=== PATIENT | female | born 1985 | race Caucasian/White ===

== ENCOUNTER 2016-07-03 17:59 | Emergency (ER) | payer MEDICAID ==
[~2016-07-03] VITALS: Ht 157.5 cm; Wt 78.0 kg
[~2016-07-03 17:59] MED LIST: PREN1TAB49 PO
[2016-07-03 18:03] VITALS: Ht 157.5 cm; Wt 78.0 kg
--- NOTE | 2016-07-03 20:05 | ERD ---
ER Documentation Chief Complaint Date/Time DATE: 07/03/16 Chief Complaint , Vaginal bleeding HPI The patient is a 31-year-old female, A2, who presents the Emergency Department with complaint of vaginal spotting since this morning. The patient reports that her last menstrual period was 04/20/2016, and she believes that she is approximately 8 weeks . This morning after waking up she went to use the restroom and noted minimal pink-colored vaginal spotting on the tissue paper. She has continued to have vaginal spotting since, with no passage of clots or tissue. She called her SHOTBLAST OPERATOR, Dr. Gamino, regarding these symptoms, and was referred to the ED for ultrasound imaging, beta hCG testing and laboratory evaluation. The patient has not yet obtained an ultrasound during this . She denies any abdominal pain, nausea, vomiting or diarrhea. Denies any dysuria, hematuria, flank pain. Denies any fevers or chills. Denies any chest pain, palpitations, shortness of breath, cough. Denies lower extremity edema, calf swelling or calf tenderness. Denies any new vaginal discharge. ROS All systems reviewed and are negative except as per history of present illness. Medications Home Meds Active Scripts Cephalexin* (Keflex*) 500 Mg Capsule, 500 MG PO QID for 7 Days, CAP Prov:JERILYN QUINTERO PA-C 07/03/16 Reported Medications Vits W-Ca,Fe,Fa(<1MG) () 1 Tab Tablet, 1 TAB PO 11/08/11 [None] No Conflict Check 08/08/10 Allergies Allergies: Coded Allergies: Penicillins (Verified Allergy, 11/08/11) PMhx/Soc History of Surgery: No Anesthesia Reaction: No Hx Neurological Disorder: No Hx Respiratory Disorders: No Hx Cardiac Disorders: No Hx Psychiatric Problems: No Hx Miscellaneous Medical Probl: No (NO OTHER MEDICAL PROBLEMS) Hx Alcohol Use: No Hx Substance Use: No Hx Tobacco Use: No Physical Exam Vitals Vital Signs Date Time Temp Pulse Resp B/P Pulse Ox O2 Delivery O2 Flow Rate FiO2 07/03/16 22:58 98.3 75 18 121/82 100 Room Air 07/03/16 18:03 98.1 79 20 145/79 99 Physical Exam GENERAL: Well-developed, well-nourished, female, in no acute distress. Nontoxic. Well-appearing. HEENT: Head is normocephalic, atraumatic. No scleral pallor or icterus. Pupils equal, round and reactive to light. Conjunctiva pink. Moist mucous membranes. NECK: Supple. Full range of motion. RESPIRATORY: Lungs are clear to auscultation bilaterally. Equal breath sounds. Normal expiratory effort. CARDIOVASCULAR: Regular rate and rhythm. S1 and S2 normal. No murmurs, rubs, or gallops. Distal pulses are palpable, 2+ bilaterally. Capillary refill is less than 2 seconds. GASTROINTESTINAL: Abdomen is soft, non-tender, and non-distended. No guarding, no rebound tenderness. Normal bowel sounds. No gross peritonitis. FLANK: No CVA tenderness. EXTREMITIES: No clubbing, cyanosis, or edema. Normal skin perfusion. Moving all extremities. Muscle tone is normal. No focal swelling or erythema. NEUROLOGIC: The patient is alert, awake, and oriented x 3. No focal neurologic deficits. INTEGUMENT: Skin is intact. Warm and dry. No rashes, no petechiae present. Normal turgor. PSYCHIATRIC: Normal mood and mentation. Result Diagram: 07/03/162016 Results 24 hrs Laboratory Tests Test 07/03/16 20:00 07/03/16 20:17 Urine Bacteria MODERATE Urine Bilirubin NEGATIVE Urine Clarity SLIGHTLY CLOUDY Urine Color YELLOW Urine Epithelial Cells MODERATE Urine Glucose NEGATIVE% Urine Hemoglobin 3+ Urine Ketones NEGATIVE Urine Leukocyte Esterase 2+ Urine Microscopic RBC 5-10/HPF Urine Microscopic WBC 25-50/HPF Urine Mucus MODERATE Urine Nitrite NEGATIVE Urine Specific [place] 1.020 Urine Total Protein NEGATIVE Urine Urobilinogen 0.2 E.U./dL Urine pH 6.0 Basophils # 0.010^3/ul Basophils % 0.3% Beta HCG, Quantitative 47964.0mIU/ml Blood Morphology Comment Eosinophils # 0.210^3/ul Eosinophils % 1.5% Hematocrit 37.0% Hemoglobin 12.7g/dl Lymphocytes # 2.010^3/ul Lymphocytes % 18.0% Mean Corpuscular Hemoglobin 28.5pg Mean Corpuscular Hemoglobin Concent 34.3g/dl Mean Corpuscular Volume 83.2fl Mean Platelet Volume 7.1fl Monocytes # 0.410^3/ul Monocytes % 3.9% Neutrophils # 8.410^3/ul Neutrophils % 76.3% Nucleated Red Blood Cells # 0.010^3/ul Nucleated Red Blood Cells % 0.0/100WBC Platelet Count 11274^3/UL Red Blood Count 4.4510^6/ul Red Cell Distribution Width 13.7% White Blood Count 11.110^3/ul Procedures/MDM DIAGNOSTIC TESTS AND INTERPRETATION: PROCEDURE: US OB. CLINICAL INDICATION: Vaginal bleeding TECHNIQUE: Transabdominal and transvaginal views of the pelvis are available for review. COMPARISON: No prior studies are available for comparison. FINDINGS: Intrauterine gestational sac, yolk sac and pole of the following information: [place]-rump length: 0.54 cm heart rate: 109 bpm Gestational sac: 1.33 cm Ultrasound estimated gestational age: 6 weeks 1 day No subchorionic hemorrhage is demonstrated No ovarian or adnexal mass lesion is seen. There is no free fluid. IMPRESSION: 1. Single viable intrauterine with an estimated gestational age of 6 weeks 1 day, the estimated date of delivery 02/25/2017. 2. No evidence of subchorionic hemorrhage to help explain the provided history. Physician Mil Date Time Electronically viewed and signed by Physician Mil on 07/03/2016 21:30 The possibility of threatened vs. early vs. ectopic was discussed with the patient and she was told to follow up with her SHOTBLAST OPERATOR within 2-3 days for re-evaluation. The patient complies and agrees with plan. MEDICAL DECISION MAKING: This is a 31-year-old female presenting to the Emergency Department complaining of vaginal bleeding. She had no significant abnormalities noted on physical examination. Vital signs were normal. Differential diagnosis includes, but is not limited to, ectopic , cervicitis, fibroids, molar , implantation bleeding, heterotopic , septic , missed , incomplete , inevitable , threatened , complete , coagulopathy, fibroids, adenomyosis, endometriosis, neoplasia, vaginitis, PID, vaginal trauma , dysfunctional uterine bleeding. No significant abnormalities were noted on testing ordered. Urinalysis showed 2+ urine leukocyte esterase, 3+ urine hemoglobin and many WBCs, indicating likely urinary tract infection. Beta hCG 17 ,759. Rh (+), no indication for RhoGAM. Ultrasound performed revealed a single viable intrauterine with an estimated gestational age of 6 weeks 1 day , the estimated date of delivery 02/25/2017. After rest the patient reports no new complaints. Upon review and interpretation of the patient's presentation and overall ER course, I believe the patient's symptoms are most consistent with urinary tract infection and threatened . At this time the patient patient is in stable condition with stable vital signs and therefore can be discharged home with prescription for Keflex and given strict return precautions for signs of deteriorating or worsening condition. The patient is advised to follow up with her SHOTBLAST OPERATOR within 2-3 days for reevaluation and further management, or return to the ER sooner for any worsening symptoms. I shared all laboratory and diagnostic imaging studies with the patient at length and in great detail, and the patient verbally understands and agrees with the plan for further observation and care as an outpatient. At the time of discharge, all questions were answered. Departure Diagnosis: Primary Impression: Vaginal bleeding in patient at less than 20 weeks gestation Additional Impressions: Threatened Urinary tract infection Urinary tract infection type: acute cystitis Hematuria presence: with hematuria Qualified Code: N30.01 - Acute cystitis with hematuria Condition: Stable Patient Instructions: Bleeding During Early , Possible Miscarriage ( Threatened ), Understanding Urinary Tract Infections (UTIs) Additional Instructions: FOLLOW UP WITH DR. GAMINO IN 2-3 DAYS FOR REPEAT BETA HCG, REEVALUATION AND FURTHER MANAGEMENT. RETURN TO THE ED SOONER FOR ANY NEW OR WORSENING SYMPTOMS. JEIRLYN QUINTERO PA-C Jul 03, 2016 20:05
[2016-07-03 20:39] LABS: ADD UMIC YES; URINE BILIRUBIN (Dip) NEGATIVE (NEGATIVE); URINE BLOOD (Dip) 3+ (NEGATIVE); URINE COLOR YELLOW (YELLOW); URINE GLUCOSE (Dip) NEGATIVE (NEGATIVE); URINE KETONES (Dip) NEGATIVE (NEGATIVE); URINE LEUKOCYTE ESTERASE (Dip) 2+ (NEGATIVE); URINE NITRITE (Dip) NEGATIVE (NEGATIVE); URINE TOTAL PROTEIN (Dip) NEGATIVE (NEGATIVE); URINE UROBILINOGEN (Dip) 0.2 E.U./dL (0.1-1.0)
[2016-07-03 20:42] LABS: BASOPHILS % 0.3 % (0.0-2.0); EOSINOPHILS # 0.2 10^3/ul (0.0-0.5); EOSINOPHILS % 1.5 % (0.0-7.0); HEMOGLOBIN 12.7 g/dl (12.0-16.0); MEAN CORPUSCULAR HEMOGLOBIN 28.5 pg (29.0-33.0); MEAN CORPUSCULAR HGB CONC 34.3 g/dl (32.0-37.0); MEAN CORPUSCULAR VOLUME 83.2 fl (82.0-101.0); MEAN PLATELET VOLUME 7.1 fl (7.4-10.4); MONOCYTE # 0.4 10^3/ul (0.3-0.9); MONOCYTES % 3.9 % (0.0-11.0); NEUTROPHIL # 8.4 10^3/ul (1.6-7.5); NEUTROPHILS % 76.3 % (39.0-77.0); PLATELET COUNT 341 10^3/UL (140-440); RED BLOOD COUNT 4.45 10^6/ul (4.20-5.40); RED CELL DISTRIBUTION WIDTH 13.7 % (11.5-14.5); UNCORRECTED WBC 11.1 10^3/ul (4.8-10.8); WHITE BLOOD COUNT 11.1 10^3/ul (4.8-10.8)
[2016-07-03 20:47] LABS: CONDITION 1
[2016-07-03 20:59] LABS: BACTERIA,URINE MODERATE; MUCUS,URINE MODERATE
--- NOTE | 2016-07-03 21:30 | RADRPT ---
PROCEDURE: US OB. CLINICAL INDICATION: Vaginal bleeding TECHNIQUE: Transabdominal and transvaginal views of the pelvis are available for review. COMPARISON: No prior studies are available for comparison. FINDINGS: Intrauterine gestational sac, yolk sac and pole of the following information: [place]-rump length:0.54 cm heart rate:109 bpm Gestational sac:1.33 cm Ultrasound estimated gestational age:6 weeks 1 day No subchorionic hemorrhage is demonstrated No ovarian or adnexal mass lesion is seen. There is no free fluid. RPTAT:HJJR IMPRESSION: 1. Single viable intrauterine with an estimated gestational age of 6 weeks 1 day, the est imated date of delivery 02/25/2017. 2. No evidence of subchorionic hemorrhage to help explain the provided history. Physician Mil Date Time Electronically viewed and signed by Physician Mil on 07/03/2016 21:30 /
[2016-07-03] MEDS ORDERED: CEPH-443 PO (21:40)
[2016-07-03 22:58] VITALS: BP 121/82; PULSE 75; RESP 18; TEMP 98.3
== END 2016-07-03 22:58 | disposition home or self-care (01) ==
LOC: FTE 17:59
DX: O20.9 Hemorrhage in early pregnancy, unspecified (principal); O20.0 Threatened abortion; O23.11 Infections of bladder in pregnancy, first trimester
CPT/HCPCS: 36415; 76801; 76817; 81001; 84702; 85025; 86900; 86901; 87086; Z7502; 81003

== ENCOUNTER 2016-10-13 18:39 | Outpatient (CLI) | payer MEDICAID ==
[~2016-10-13] VITALS: Ht 160 cm; Wt 98.5 kg
[~2016-10-13 18:39] MED LIST changes: +CEPH-443 PO
[2016-10-13 18:59] VITALS: BP 139/76; PULSE 116; RESP 20; Ht 160 cm; Wt 98.5 kg
[2016-10-13 19:45] LABS: ADD SCAN DIFF NO
[2016-10-13 19:49] LABS: BASOPHILS % 0.1 % (0.0-2.0); EOSINOPHILS # 0.1 10^3/ul (0.0-0.5); EOSINOPHILS % 0.5 % (0.0-7.0); HEMATOCRIT 34.9 % (37.0-47.0); HEMOGLOBIN 11.7 g/dl (12.0-16.0); LYMPHOCYTES # 0.8 10^3/ul (0.8-2.9); LYMPHOCYTES % 8.4 % (15.0-51.0); MEAN CORPUSCULAR HEMOGLOBIN 28.5 pg (29.0-33.0); MEAN CORPUSCULAR HGB CONC 33.5 g/dl (32.0-37.0); MEAN CORPUSCULAR VOLUME 85.1 fl (82.0-101.0); MEAN PLATELET VOLUME 8.6 fl (7.4-10.4); MONOCYTE # 0.4 10^3/ul (0.3-0.9); MONOCYTES % 3.9 % (0.0-11.0); PLATELET COUNT 221 10^3/UL (140-415); RED CELL DISTRIBUTION WIDTH 13.8 % (11.5-14.5); WHITE BLOOD COUNT 9.3 10^3/ul (4.8-10.8)
[2016-10-13 19:57] LABS: ADD UMIC YES; URINE BILIRUBIN (Dip) NEGATIVE (NEGATIVE); URINE BLOOD (Dip) 1+ (NEGATIVE); URINE COLOR YELLOW (YELLOW); URINE GLUCOSE (Dip) NEGATIVE (NEGATIVE); URINE KETONES (Dip) 3+ (NEGATIVE); URINE LEUKOCYTE ESTERASE (Dip) NEGATIVE (NEGATIVE); URINE NITRITE (Dip) NEGATIVE (NEGATIVE); URINE TOTAL PROTEIN (Dip) TRACE (NEGATIVE); URINE UROBILINOGEN (Dip) 0.2 E.U./dL (0.1-1.0)
[2016-10-13 20:05] LABS: ALBUMIN 3.5 g/dl (3.3-4.9); POTASSIUM 3.5 mmol/L (3.5-5.1)
[2016-10-13 20:06] LABS: INR 0.97; PROTIME 12.9 Sec (12.2-14.2)
[2016-10-13 20:07] LABS: PARTIAL THROMBOPLASTIN TIME 26.5 Sec (25.0-35.0)
[2016-10-13 20:08] LABS: ALBUMIN/GLOBULIN RATIO 0.92; BILIRUBIN,INDIRECT 0.4 mg/dl (0-1.1); BILIRUBIN,TOTAL 0.4 mg/dl (0.2-1.3); CALCIUM 8.7 mg/dl (8.4-10.2); CREATININE 0.44 mg/dl (0.44-1.00); TOTAL PROTEIN 7.3 g/dl (6.1-8.1); URIC ACID 4.3 mg/dl (3.1-7.9)
[2016-10-13 20:33] LABS: FIBRIN SPLIT PRODUCT <10 ug/ml (<10)
--- NOTE | 2016-10-13 21:35 | QN ---
Documentation Comment OB Triage- Laborist Pt is a 31yo at 20+5 presenting with intermittent epigastric pain since 0100. Pt states pain comes about every 5 minutes and is 6/10, non-radiating, non -migrating. Started after eating meatballs with rice and macaroni salad for dinner last night. Had episode of N/V after breakfast this morning (toast with cream cheese and coffee) and again after eating a banana and drinking water. Denies nausea now. Drinking water in triage without problems. Feels pain is moving downwards from epigastric region to umbilicus. Takes Tums at home for reflux although doesn't feel like reflux today. Reports mild SALAZAR, denies visual changes or RUQ pain. Reports good FM, denies contractions, LOF or VB. Of note, pt says at her last clinic appt for U/S, she was told she had mildly elevated BP. Otherwise, pt denies hx of HTN. Per Dr. Edwards, RUQ U/S, CL, CBC, CMP, amylase, lipase and uric acid ordered. O: VS T 98.0 BP 139/76 T 116 R 20, Repeat BP 130/83 P 103 FHT: [place]: acontractile Gen: well appearing, NAD Abd: soft, min reproducible TTP at epigastric region PROCEDURE: Limited OB ultrasound CLINICAL INDICATION: Abdominal pain. TECHNIQUE: Sonographic evaluation to assess the cervical length was performed. Transabdominal and transvaginal imaging of the uterus was performed. COMPARISON: None. FINDINGS: A single live intrauterine in variable presentation is identified. The heart rate measures 157 bpm. The cervix is closed, measuring 3.1 cm in length. There is a posterior placenta, grade 0. IMPRESSION: 1. Closed cervix measuring 3.1 cm. PROCEDURE: Right upper quadrant ultrasound. CLINICAL INDICATION: Right upper quadrant pain. TECHNIQUE: Multiple real-time longitudinal and transverse images of the right upper quadrant of the abdomen were acquired utilizing a curved array transducer. Images were reviewed on a high-resolution PACS workstation. COMPARISON: None. FINDINGS: The pancreas head is unremarkable. The pancreas body and tail are not well seen. The liver is echogenic. The liver measures 18.7 cm in length. No hepatic lesion or intrahepatic biliary ductal dilatation is seen. The portal vein is patent with hepatopetal flow. No gallstones or sludge are seen within the gallbladder lumen. The gallbladder wall is not thickened. There is no pericholecystic fluid. The common bile duct measures 3 mm in diameter, not dilated. The right kidney measures 10.8 cm in length. Renal echogenicity is normal. There is no hydronephrosis, urinary calculus, or renal mass. The visualized portions of the aorta and IVC are unremarkable. IMPRESSION: 1. Normal appearance of the gallbladder and bile ducts. 2. Hepatomegaly and fatty infiltration of the liver. Assessment: Epigastric pain, N/V possibly 2/2 gastroenteritis vs gas High normal BP with mild SALAZAR, normal PreE labs Reassuring FWB Maternal tachycardia, improved with hydration Plan: 1)GI upset: Biliary labs and RUQ U/S unremarkable. Able to tolerate POs. Recommended BRAT diet at home for now. N/V precautions reviewed. 2)High normal BP x1: Repeat BP wnl. PreE labs wnl. Tylenol for SALAZAR 3)Tachycardia: Ketones on UA. Likely 2/2 dehydration in the setting of N/V. HR improved with IV hydration. Encourage PO hydration. Pain, PTL and ROM precautions discussed with the patient. Pt stable for discharge home. Encourage f/up as scheduled in clinic. Questions answered to patient's satisfaction. SONY HUBER MD October 13, 2016 21:35
[2016-10-13 21:42] LABS: BACTERIA,URINE FEW; MUCUS,URINE FEW; SQUAMOUS EPITHELIAL CELL,UR FEW; URINE RBCS 0-2 /HPF (0)
--- NOTE | 2016-10-13 21:50 | RADRPT ---
PROCEDURE: Right upper quadrant ultrasound. CLINICAL INDICATION: Right upper quadrant pain. TECHNIQUE: Multiple real-time longitudinal and transverse images of the right upper quadrant of th e abdomen were acquired utilizing a curved array transducer. Images were reviewed on a high-resoluti on PACS workstation. COMPARISON: None. FINDINGS: The pancreas head is unremarkable. The pancreas body and tail are not well seen. The liver is echogenic. The liver measures 18.7 cm in length. No hepatic lesion or intrahepatic bi liary ductal dilatation is seen. The portal vein is patent with hepatopetal flow. No gallstones or sludge are seen within the gallbladder lumen. The gallbladder wall is not thickene d. There is no pericholecystic fluid. The common bile duct measures 3 mm in diameter, not dilated. The right kidney measures 10.8 cm in length. Renal echogenicity is normal. There is no hydronephro sis, urinary calculus, or renal mass. The visualized portions of the aorta and IVC are unremarkable. IMPRESSION: 1. Normal appearance of the gallbladder and bile ducts. 2. Hepatomegaly and fatty infiltration of the liver. RPTAT: HTAR .Geremias Diego MD, MD Date Time Electronically viewed and signed by .Geremias iDego MD, on 10/13/2016 21:50 .R/
--- NOTE | 2016-10-13 21:51 | RADRPT ---
PROCEDURE: Limited OB ultrasound CLINICAL INDICATION: Abdominal pain. TECHNIQUE: Sonographic evaluation to assess the cervical length was performed. Transabdominal and transvaginal imaging of the uterus was performed. COMPARISON: None. FINDINGS: A single live intrauterine in variable presentation is identified. The heart rate me asures 157 bpm. The cervix is closed, measuring 3.1 cm in length. There is a posterior placenta, gra de 0. IMPRESSION: 1. Closed cervix measuring 3.1 cm. RPTAT: HTAR .Geremias Diego MD, Date Time Electronically viewed and signed by .Geremias Diego MD, on 10/13/2016 21:51 .R/
[2016-10-13] MEDS ORDERED: LACTATED RINGER'S 1,000 ML IV SCH (22:06)
[2016-10-13] MEDS ORDERED: ACETAMINOPHEN 500 MG TAB PO STA (22:27)
--- NOTE | 2016-10-13 23:51 | TRIAGE ---
OB Triage Datetime Report Generated by CPN: 10/13/2016 23:51 Datetime: 10/13/2016 22:41 Labor Evaluation Frequency: 0 Monitor Mode: External Datetime: 10/13/2016 22:21 Stage of : OB Triage Datetime: 10/13/2016 22:00 Labor Evaluation Frequency: 0 Monitor Mode: External Datetime: 10/13/2016 21:00 Labor Evaluation Frequency: 1/HR Monitor Mode: External Duration (sec)2399: 30 Datetime: 10/13/2016 20:00 Labor Evaluation Frequency: 1/HR Monitor Mode: External Duration (sec)2399: 60 Quality: Mild Pattern: Normal: <= 5 Contractions in 10 Minutes Resting Tone [place]: Relaxed Datetime: 10/13/2016 19:30 Labor Evaluation Frequency: 0 Monitor Mode: External Datetime: 10/13/2016 19:22 Assessment Type: Triage Maternal Assessment Level of Consciousness: Fully Conscious DTR's/Clonus: DTRs 2+; No Clonus Headache: Denies Blurred Vision: No Respiratory Effort: Unlabored; Regular Rhythm; Equal Expansion Breath Sounds, Left: Clear and Equal Breath Sounds, Right: Clear and Equal Nausea/Vomiting: Denies RUQ Epigastric Pain: Denies Facial Edema: None Fall Risk Assessment History of Falling: (0) No Secondary Diagnosis: (0) No Ambulatory Aid: (0) Bedrest/Nurse Assist IV Therapy: (0) No Gait: (0) Normal/Bedrest/Immobile Mental Status: (0) Oriented to Own Ability Fall Score: 0 Fall Risk Score Definition: No Risk: No action required Datetime: 10/13/2016 19:10 Heart Rate FHR Baseline Rate: 168 Monitor Mode: Doppler Datetime: 10/13/2016 18:53 Assessment Type: Triage Maternal Assessment Level of Consciousness: Fully Conscious DTR's/Clonus: DTRs 2+; No Clonus Headache: Denies Blurred Vision: No Respiratory Effort: Unlabored; Regular Rhythm; Equal Expansion Breath Sounds, Left: Clear and Equal Breath Sounds, Right: Clear and Equal Nausea/Vomiting: Denies RUQ Epigastric Pain: Denies Facial Edema: None Fall Risk Assessment History of Falling: (0) No Secondary Diagnosis: (0) No Ambulatory Aid: (0) Bedrest/Nurse Assist IV Therapy: (0) No Gait: (0) Normal/Bedrest/Immobile Mental Status: (0) Oriented to Own Ability Fall Score: 0 Fall Risk Score Definition: No Risk: No action required Datetime: 10/13/2016 18:52 Stage of : OB Triage Maternal Assessment Level of Consciousness: Fully Conscious DTR's/Clonus: DTRs 2+; No Clonus Headache: Denies Blurred Vision: No Respiratory Effort: Unlabored; Regular Rhythm; Equal Expansion Breath Sounds, Left: Clear and Equal Breath Sounds, Right: Clear and Equal Nausea/Vomiting: Denies RUQ Epigastric Pain: Denies Lower Extremities Edema: Bilateral Lower Extremities Degree: 1+ Upper Extremities Edema: None Degree: None Facial Edema: None Temperature Route: Axillary Fall Risk Assessment History of Falling: (0) No Secondary Diagnosis: (0) No Ambulatory Aid: (0) Bedrest/Nurse Assist IV Therapy: (0) No Gait: (0) Normal/Bedrest/Immobile Mental Status: (0) Oriented to Own Ability Fall Score: 0 Fall Risk Score Definition: No Risk: No action required Datetime: 10/13/2016 18:44 Time of Arrival: 10/13/2016 18:35 EGA: 20.5 Arrived By: Ambulatory Arrived From: Home Chief Complaint: UPPER QUADRANT PAIN , N/V Movement: Present Rupture of Membranes: Denies Vaginal Bleeding: None Vaginal Discharge: Denies Recent Sexual Intercouse: Denies Time Provider Notified: 10/13/2016 19:40 Provider Notified: DR HUBER Initial Plan: DOPPPLER , CBC, CMP, AMYLASE, LIPASE, CERVICAL LENGHT, URIC ACID
== END 2016-10-13 22:45 | disposition home or self-care (01) ==
LOC: OBT 18:39 → L-D 18:41 → OBT 22:45
PROVIDERS: ATTEND Obstetrics & Gynecology
DX: O26.893 Other specified pregnancy related conditions, third trimester (principal); R10.9 Unspecified abdominal pain; Z3A.29 29 weeks gestation of pregnancy
CPT/HCPCS: 76705; 76817; 80053; 80076; 81001; 82150; 83690; 84560; 85025; 85362; 85384; 85610; 85730; J7120; Z7610

== ENCOUNTER 2016-11-25 18:15 | Outpatient (CLI) | payer MEDICAID ==
[~2016-11-25] VITALS: Ht 160 cm; Wt 102.4 kg
[~2016-11-25 18:15] MED LIST changes: -CEPH-443 PO
[2016-11-25 19:19] VITALS: Ht 160 cm; Wt 102.4 kg
[2016-11-25 19:20] VITALS: BP 121/71; PULSE 95; RESP 18
--- NOTE | 2016-11-25 21:24 | RADRPT ---
PROCEDURE: Limited obstetric ultrasound CLINICAL INDICATION: Pain TECHNIQUE: Multiple transverse and longitudinal grayscale images of the pelvis were obtained hughes sabdominally and transvaginally.. COMPARISON: 10/13/2016 FINDINGS: The cervix is closed with a length of 4.2 cm. There is a single viable intrauterine gestation. Cardiac activity is present with 142 beats per min katerin. There is a breech presentation. The placenta is anterior. There is no evidence for an abruption or placenta previa. RPTAT: AA IMPRESSION: Cervix length measures 4.2 cm. .Chris Corral MD, Date Time Electronically viewed and signed by .Chris Corral MD, on 11/25/2016 21:24 .S/
[2016-11-25 22:08] LABS: ADD SCAN DIFF NO
[2016-11-25 22:12] LABS: BASOPHILS % 0.3 % (0.0-2.0); EOSINOPHILS # 0.1 10^3/ul (0.0-0.5); EOSINOPHILS % 0.8 % (0.0-7.0); HEMATOCRIT 32.5 % (37.0-47.0); HEMOGLOBIN 11.1 g/dl (12.0-16.0); LYMPHOCYTES # 2.1 10^3/ul (0.8-2.9); LYMPHOCYTES % 17.8 % (15.0-51.0); MEAN CORPUSCULAR HEMOGLOBIN 29.2 pg (29.0-33.0); MEAN CORPUSCULAR HGB CONC 34.2 g/dl (32.0-37.0); MEAN CORPUSCULAR VOLUME 85.5 fl (82.0-101.0); MEAN PLATELET VOLUME 9.4 fl (7.4-10.4); MONOCYTE # 0.6 10^3/ul (0.3-0.9); MONOCYTES % 5.3 % (0.0-11.0); NEUTROPHIL # 8.9 10^3/ul (1.6-7.5); NEUTROPHILS % 75.1 % (39.0-77.0); PLATELET COUNT 262 10^3/UL (140-415); RED CELL DISTRIBUTION WIDTH 14.5 % (11.5-14.5); WHITE BLOOD COUNT 11.9 10^3/ul (4.8-10.8)
[2016-11-25 22:27] LABS: ADD UMIC YES; UR ASCORBIC ACID 20 mg/dL (NEGATIVE); UR BILIRUBIN (Dip) NEGATIVE (NEGATIVE); UR BLOOD (Dip) NEGATIVE (NEGATIVE); UR CLARITY SLIGHTLY CLOUDY (CLEAR); UR COLOR YELLOW (YELLOW); UR GLUCOSE (Dip) NEGATIVE (NEGATIVE); UR KETONES (Dip) TRACE mg/dL (NEGATIVE); UR LEUKOCYTE ESTERASE (Dip) 2+ Leu/ul (NEGATIVE); UR MUCUS MODERATE /HPF (NONE SEEN); UR NITRITE (Dip) NEGATIVE (NEGATIVE); UR RBC 2 /HPF (0-5); UR SPECIFIC GRAVITY (Dip) 1.034 (1.003-1.030); UR SQUAMOUS EPITHELIAL CELL MODERATE /HPF (FEW); UR TOTAL PROTEIN (Dip) 1+ mg/dl (NEGATIVE); UR UROBILINOGEN (Dip) NEGATIVE (NEGATIVE)
[2016-11-26] MEDS ORDERED: CEFTRIAXONE 1 GM INJ IM ONE (00:30)
--- NOTE | 2016-11-26 06:42 | TRIAGE ---
OB Triage Datetime Report Generated by CPN: 11/26/2016 06:42 Datetime: 11/26/2016 01:40 Arrived By: Wheelchair Arrived From: Dr. Office Datetime: 11/26/2016 01:29 Stage of : OB Triage Datetime: 11/26/2016 01:25 Labor Evaluation Frequency: 0 Monitor Mode: External Heart Rate FHR Baseline Rate: 145 Monitor Mode: External US FHR Baseline Changes: No Baseline Change Variability: Moderate 6-25 bpm Accelerations: 15X15 Decelerations: None Category: Category I Datetime: 11/26/2016 01:00 Labor Evaluation Frequency: 0 Monitor Mode: External Heart Rate FHR Baseline Rate: 155 Monitor Mode: External US FHR Baseline Changes: No Baseline Change Variability: Moderate 6-25 bpm Accelerations: 15X15 Decelerations: None Category: Category I Datetime: 11/26/2016 00:30 Stage of : OB Triage Datetime: 11/25/2016 23:58 Comments: UNABLE TO TRACE DUE TO PT SIZE AND GESTATION Datetime: 11/25/2016 23:19 Labor Evaluation Frequency: 0 Monitor Mode: External Heart Rate FHR Baseline Rate: 155 FHR Baseline Changes: No Baseline Change Variability: Moderate 6-25 bpm Accelerations: 15X15 Decelerations: None Category: Category I Datetime: 11/25/2016 23:00 Labor Evaluation Frequency: 0 Monitor Mode: External Heart Rate FHR Baseline Rate: 155 Monitor Mode: External US FHR Baseline Changes: No Baseline Change Variability: Moderate 6-25 bpm Accelerations: 15X15 Decelerations: None Category: Category I Datetime: 11/25/2016 22:55 Stage of : OB Triage Datetime: 11/25/2016 22:00 Comments: UNABLE TO TRACE DUE TO PT SIZE AND GESTATION Datetime: 11/25/2016 21:20 Stage of : OB Triage Datetime: 11/25/2016 21:15 Stage of : OB Triage Datetime: 11/25/2016 21:00 Labor Evaluation Frequency: 0 Monitor Mode: External Heart Rate FHR Baseline Rate: 155 Monitor Mode: External US FHR Baseline Changes: No Baseline Change Variability: Moderate 6-25 bpm Accelerations: 15X15 Decelerations: None Category: Category I Datetime: 11/25/2016 20:00 Labor Evaluation Frequency: 0 Monitor Mode: External Heart Rate FHR Baseline Rate: 155 Monitor Mode: External US FHR Baseline Changes: No Baseline Change Variability: Moderate 6-25 bpm Accelerations: 15X15 Decelerations: None Category: Category I Datetime: 11/25/2016 19:13 Stage of : OB Triage Time of Arrival: 11/25/2016 18:11 EGA: 26.6 Arrived By: Wheelchair Arrived From: Home Chief Complaint: LT LOWER ABDOMINAL PAIN Movement: Present Time Contractions Began: 11/25/2016 08:00 Rupture of Membranes: Denies Vaginal Bleeding: None Vaginal Discharge: Denies Recent Sexual Intercouse: Denies Abdominal Trauma: Not Applicable Patient Complaints: None (Annotations: Data stored by N on behalf of user) Time Provider Notified: 11/25/2016 20:36 Provider Notified: DR GAMINO Initial Plan: CALL MD, EFM Maternal Assessment Level of Consciousness: Fully Conscious DTR's/Clonus: DTRs 2+; No Clonus Headache: Denies Blurred Vision: No Respiratory Effort: Unlabored; Regular Rhythm; Equal Expansion Breath Sounds, Left: Clear and Equal Breath Sounds, Right: Clear and Equal Nausea/Vomiting: Denies RUQ Epigastric Pain: Denies Lower Extremities Edema: Bilateral Lower Extremities Degree: 1+ Upper Extremities Edema: None Degree: None Facial Edema: None Temperature Route: Oral Fall Risk Assessment History of Falling: (0) No Secondary Diagnosis: (0) No Ambulatory Aid: (0) Bedrest/Nurse Assist IV Therapy: (0) No Gait: (0) Normal/Bedrest/Immobile Mental Status: (0) Oriented to Own Ability Fall Score: 0 Fall Risk Score Definition: No Risk: No action required Monitor Mode: External Monitor Mode: External US Pain Assessment Pain Scale: 5 Pain Presence: Intermittent Pain Type: Contraction Pain Location: Abdomen; Back Datetime: 10/13/2016 19:22 Fall Score: 0 Fall Risk Score Definition: No Risk: No action required Datetime: 10/13/2016 18:53 Fall Score: 0 Fall Risk Score Definition: No Risk: No action required Datetime: 10/13/2016 18:52 Fall Score: 0 Fall Risk Score Definition: No Risk: No action required Datetime: 10/13/2016 18:44 EGA: 20.5
--- NOTE | 2016-12-03 03:38 | HP ---
DATE OF ADMISSION: 11/25/2016 DATE OF DICTATION: 11/30/2016- Late entry note. CHIEF COMPLAINT: Abdominal pain. HISTORY OF THE PRESENT ILLNESS: The patient is a 31-year-old V, para II, 0, II, II with single intrauterine at 26 weeks and 6 days. The patient is complaining of left lower abdominal pain. She states good movement. Denies nausea, vomiting, shortness of breath, chest pain, headache, visual changes, leakage of fluid, vaginal bleeding. PHYSICAL EXAMINATION: GENERAL: The patient is comfortable in no acute distress. She has appropriate mood and affect. VITAL SIGNS: Blood pressure 16/72, pulse rate 82, respiratory rate 18, temperature 98.3. HEART: Regular rhythm and rate. No murmur. LUNGS: Clear to auscultation bilaterally. ABDOMEN: Soft. Nontender. No rebound or guarding. Uterine fundal height is 26 weeks. heart rate 135 BPM. Moderate variability, with acceleration, no deceleration. No uterine contractions. BACK: No CVA tenderness bilateral. EXTREMITIES: No edema, varicose veins, thigh or calf tenderness bilateral. Homans' sign is negative. ASSESSMENT AND PLAN: The patient is a 31-year-old V, para II, 0, II, II with single intrauterine at 26 weeks and 6 days, with left lower abdominal pain. CBC was normal. UA with 16 white blood cells, 2+ leukocyte esterase. Ultrasound performed with LORIN of 14.6 and biophysical profile of 8/8. Signs and symptoms of labor, preeclampsia, kick count was discussed with the patient. She expressed understanding, all of her questions were answered.I recommend to increase fluid intake. Macrobid 100 mg twice daily for 7 days was given. Urine culture result is pending. She will have follow up with her primary TRIAL COURT JUDGE in 2 days to review urine cultures. Dictated By: Jesus Alberto Cramer MD /yaniv/jeffy /Document#: [id number] MTDD
== END 2016-11-26 01:40 | disposition home or self-care (01) ==
LOC: L-D 18:15 → OBT 18:15
PROVIDERS: ATTEND Obstetrics & Gynecology
DX: O26.893 Other specified pregnancy related conditions, third trimester (principal); Z3A.26 26 weeks gestation of pregnancy; R10.32 Left lower quadrant pain
CPT/HCPCS: 76817; 81001; 85025; 87086; J0696; Z7500; G0463

== ENCOUNTER 2017-01-03 10:51 | Inpatient (IN) | payer MEDICAID ==
[~2017-01-03] VITALS: Ht 160 cm; Wt 110.3 kg
[2017-01-03 10:53] VITALS: Ht 160 cm; Wt 110.3 kg
[2017-01-03 10:54] VITALS: BP 135/89; RESP 16
--- NOTE | 2017-01-03 11:28 | RADRPT ---
PROCEDURE: US OB biophysical profile. CLINICAL INDICATION: evaluation TECHNIQUE: Multiple sonographic images of the pelvis were obtained. The images were reviewed on a PACS workstation. COMPARISON: Obstetrical ultrasound from 11/25/1969 FINDINGS: There is a single viable intrauterine gestation. Cardiac activity is present with 161 beats per min katerin. There is a vertex presentation. The placenta is anterior. There is no evidence of placental abruption. There is a normal amount of amniotic fluid with an LORIN = 9.7 cm. Biophysical profile: movement 2/2 tone 2/2. breathing 2/2 LORIN 2/2 Total 12/24 RPTAT: AA . IMPRESSION: Normal biophysical profile. Physician Venus Date Time Electronically viewed and signed by Physician Venus on 01/03/2017 11:28 /
[2017-01-03 11:39] LABS: ADD UMIC YES; UR ASCORBIC ACID NEGATIVE (NEGATIVE); UR BILIRUBIN (Dip) NEGATIVE (NEGATIVE); UR BLOOD (Dip) NEGATIVE (NEGATIVE); UR CLARITY SLIGHTLY CLOUDY (CLEAR); UR COLOR YELLOW (YELLOW); UR GLUCOSE (Dip) NEGATIVE (NEGATIVE); UR KETONES (Dip) NEGATIVE (NEGATIVE); UR LEUKOCYTE ESTERASE (Dip) 2+ Leu/ul (NEGATIVE); UR NITRITE (Dip) NEGATIVE (NEGATIVE); UR RBC 0 /HPF (0-5); UR SPECIFIC GRAVITY (Dip) 1.012 (1.003-1.030); UR SQUAMOUS EPITHELIAL CELL FEW /HPF (FEW); UR TOTAL PROTEIN (Dip) 1+ mg/dl (NEGATIVE); UR UROBILINOGEN (Dip) NEGATIVE (NEGATIVE)
[2017-01-03 12:14] LABS: BASOPHILS % 0.3 % (0.0-2.0); EOSINOPHILS # 0.1 10^3/ul (0.0-0.5); EOSINOPHILS % 0.9 % (0.0-7.0); HEMATOCRIT 32.1 % (37.0-47.0); LYMPHOCYTES # 1.6 10^3/ul (0.8-2.9); LYMPHOCYTES % 16.1 % (15.0-51.0); MEAN CORPUSCULAR HEMOGLOBIN 29.1 pg (29.0-33.0); MEAN CORPUSCULAR HGB CONC 34.3 g/dl (32.0-37.0); MEAN CORPUSCULAR VOLUME 84.9 fl (82.0-101.0); MEAN PLATELET VOLUME 10.3 fl (7.4-10.4); MONOCYTE # 0.4 10^3/ul (0.3-0.9); MONOCYTES % 4.2 % (0.0-11.0); NEUTROPHILS % 77.5 % (39.0-77.0); PLATELET COUNT 224 10^3/UL (140-415); RED BLOOD COUNT 3.78 10^6/ul (4.20-5.40)
[2017-01-03 12:36] LABS: INR 0.91; PROTIME 12.3 Sec (12.2-14.2)
[2017-01-03 12:37] LABS: ALBUMIN 3.2 g/dl (3.3-4.9); ALBUMIN/GLOBULIN RATIO 0.96; BILIRUBIN,INDIRECT 0.2 mg/dl (0-1.1); BILIRUBIN,TOTAL 0.2 mg/dl (0.2-1.3); CALCIUM 8.6 mg/dl (8.4-10.2); CREATININE 0.6 mg/dl (0.44-1.00); PARTIAL THROMBOPLASTIN TIME 27.3 Sec (25.0-35.0); POTASSIUM 3.5 mmol/L (3.5-5.1); TOTAL PROTEIN 6.5 g/dl (6.1-8.1); URIC ACID 6.2 mg/dl (3.1-7.9)
[2017-01-03] MEDS ORDERED: MAGNESIUM SULFATE 4 GM/100 ML 100 ML IV ONE (14:30)
--- NOTE | 2017-01-03 15:45 | HP ---
Date/Time of Note Date/Time of Note DATE: 01/03/17 TIME: 15:42 OB - History Hx of Present Free Text/Dictation 32+wks GA with Gestational HTN BP 17-/90 +1 Pr Care: Good Care Ultrasounds: Normal mid trimester US Obstetrical Complications: Gestational Hypertension Medical Complications: None Past Family/Social History * Past Medical, Surgical, Family and Obstetric Histories reviewed from chart. OB Admission Exam Vital Signs Vital Signs Vital Signs Date Time Temp Pulse Resp B/P Pulse Ox O2 Delivery O2 Flow Rate FiO2 01/03/17 10:54 98.1 16 135/89 Physical Exam Abdomen: WNL Extremities: Normal Membranes: Intact Heart Rate: 140's Accelerations: Accelerations Present Decelerations: No Decelerations Varibility: Moderate Contractions on Admission: None Last 72 hours Lab Results CBC & BMP 01/03/17 11:23 Liver Function Test 01/03/17 11:23 Alanine Aminotransferase (ALT/SGPT) 23 Albumin 3.2 L Alkaline Phosphatase 136 H Aspartate Amino Transf (AST/SGOT) 16 Direct Bilirubin 0.00 Total Protein 6.5 OB Assessment/Plan Reason for admission: observation Plan: Expectant Management Other plan: 24 Hour Urine for Protein PIH panel Perinatalogy consult GILES Locke M.D. Jan 03, 2017 15:44
[2017-01-03] MEDS: LACTATED RINGER'S 1,000 ML IV SCH ×2 (15:52→22:25)
[2017-01-03] MEDS: BETAMET NA PHOS/AC(6 MG/ML) 5ML INJ IM SCH (15:56)
[2017-01-03] MEDS: MAGNESIUM SULFATE 20 GM/500 ML 500 ML IV SCH (16:45)
[2017-01-03] MEDS ORDERED: LABETALOL 100 MG TAB PO SCH ×3 (17:00→21:00)
[2017-01-03] MEDS: LABETALOL 100 MG TAB PO SCH ×2 (17:37→22:52)
[2017-01-03] MEDS: LABETALOL HCL 20MG INJ IV PRN (17:37)
[2017-01-03] MEDS: ACETAMINOPHEN 325 MG TAB PO PRN (23:06)
[2017-01-04] MEDS: MAGNESIUM SULFATE 20 GM/500 ML 500 ML IV SCH ×4 (00:25→23:40)
[2017-01-04] MEDS: LACTATED RINGER'S 1,000 ML IV SCH ×2 (02:35→15:58)
[2017-01-04] MEDS: ACETAMINOPHEN 325 MG TAB PO PRN ×2 (05:21→09:30)
[2017-01-04 07:46] LABS: BASOPHILS % 0.1 % (0.0-2.0); HEMATOCRIT 33.9 % (37.0-47.0); HEMOGLOBIN 11.4 g/dl (12.0-16.0); LYMPHOCYTES # 1.1 10^3/ul (0.8-2.9); LYMPHOCYTES % 8.7 % (15.0-51.0); MEAN CORPUSCULAR HEMOGLOBIN 29.1 pg (29.0-33.0); MEAN CORPUSCULAR HGB CONC 33.6 g/dl (32.0-37.0); MEAN CORPUSCULAR VOLUME 86.5 fl (82.0-101.0); MEAN PLATELET VOLUME 10.2 fl (7.4-10.4); MONOCYTE # 0.3 10^3/ul (0.3-0.9); MONOCYTES % 2.6 % (0.0-11.0); NEUTROPHILS % 87.3 % (39.0-77.0); PLATELET COUNT 245 10^3/UL (140-415); RED BLOOD COUNT 3.92 10^6/ul (4.20-5.40); RED CELL DISTRIBUTION WIDTH 14.8 % (11.5-14.5); WHITE BLOOD COUNT 12.2 10^3/ul (4.8-10.8)
[2017-01-04 08:02] LABS: INR 0.92; PROTIME 12.4 Sec (12.2-14.2)
[2017-01-04 08:03] LABS: PARTIAL THROMBOPLASTIN TIME 26.4 Sec (25.0-35.0)
[2017-01-04 08:06] LABS: ALBUMIN 3.2 g/dl (3.3-4.9); ALBUMIN/GLOBULIN RATIO 0.96; BILIRUBIN,INDIRECT 0.1 mg/dl (0-1.1); BILIRUBIN,TOTAL 0.1 mg/dl (0.2-1.3); CALCIUM 7.5 mg/dl (8.4-10.2); CREATININE 0.47 mg/dl (0.44-1.00); POTASSIUM 3.9 mmol/L (3.5-5.1); TOTAL PROTEIN 6.5 g/dl (6.1-8.1)
[2017-01-04] MEDS: LABETALOL 100 MG TAB PO SCH ×2 (09:04→21:03)
[2017-01-04] MEDS: PRENATAL VITAMIN PO SCH (09:04)
--- NOTE | 2017-01-04 09:40 | RADRPT ---
PROCEDURE: US OB. CLINICAL INDICATION: induced hypertension TECHNIQUE: Multiple sonographic images of the pelvis were obtained. Transabdominal imaging only w as performed. The images were reviewed on a PACS workstation. COMPARISON: Biophysical profile study performed concurrently. FINDINGS: The cervix is poorly visualized. There is a single viable intrauterine gestation. Cardiac activity is present with 144 beats per min katerin. There is a cephalic presentation. Measurements were made in order to determine age. The results are as follows: BPD = 32 weeks 2 days HC = 31 weeks 4 days AC = 32 weeks 3 days FL = 31 weeks 6-day. Estimated gestational age of approximately 32 weeks 0 days. The estimated date of delivery is 02/28/2017. The EFW = 1915 g. anatomy was not assessed at this time. The placenta is posterior. There is no evidence for an abruption or placenta previa. IMPRESSION: 1. Single viable intrauterine gestation of approximately 32 weeks 0 days. 2. The estimated date of delivery is 02/28/2017. 3. Estimated weight is 1915 g, 31%-ile. RPTAT: PP .Cody Yousif MD, MD Date Time Electronically viewed and signed by .Cody Yousif MD, MD on 01/04/2017 09:39 .B/
--- NOTE | 2017-01-04 11:16 | QN ---
Documentation Comment 31 years old 32 weeks and 4/7 day admitted bythe laborist commissions analyst diagnosed with severe PIH, she is complaining of head ache, her blood pressures mostly running around 150s over 80s few occasion 160s over 90 she she is on magnesium sulfate, labetalol 200 milligrams twice daily received IV labetalol 20 mg once her blood pressure was 160/100, 84 hours urine collection started yesterday resolved will be available positive after 3:30 or 4 PM perinatology consult requested with continue present treatment for severe PIH WILLEM SANZ MD Jan 04, 2017 11:16
[2017-01-04 12:43] LABS: BASOPHILS % 0.1 % (0.0-2.0); HEMATOCRIT 34.9 % (37.0-47.0); HEMOGLOBIN 11.7 g/dl (12.0-16.0); LYMPHOCYTES # 1.3 10^3/ul (0.8-2.9); LYMPHOCYTES % 9.5 % (15.0-51.0); MEAN CORPUSCULAR HGB CONC 33.5 g/dl (32.0-37.0); MEAN CORPUSCULAR VOLUME 86.6 fl (82.0-101.0); MEAN PLATELET VOLUME 10.1 fl (7.4-10.4); MONOCYTE # 0.6 10^3/ul (0.3-0.9); MONOCYTES % 4.3 % (0.0-11.0); NEUTROPHILS % 84.4 % (39.0-77.0); PLATELET COUNT 258 10^3/UL (140-415); RED BLOOD COUNT 4.03 10^6/ul (4.20-5.40); RED CELL DISTRIBUTION WIDTH 14.9 % (11.5-14.5); WHITE BLOOD COUNT 13.9 10^3/ul (4.8-10.8)
[2017-01-04 13:05] LABS: ALBUMIN 3.6 g/dl (3.3-4.9); ALBUMIN/GLOBULIN RATIO 1.05; BILIRUBIN,INDIRECT 0.2 mg/dl (0-1.1); BILIRUBIN,TOTAL 0.2 mg/dl (0.2-1.3); CALCIUM 7.6 mg/dl (8.4-10.2); CREATININE 0.51 mg/dl (0.44-1.00); POTASSIUM 3.8 mmol/L (3.5-5.1)
[2017-01-04] MEDS: BETAMET NA PHOS/AC(6 MG/ML) 5ML INJ IM SCH (13:27)
--- NOTE | 2017-01-04 14:03 | CONS ---
Date/Time of Note Date/Time of Note DATE: 01/04/17 TIME: 14:00 Consultation Date/Type/Reason Admit Date/Time Jan 03, 2017 at 14:17 Referring Provider: WILLEM SANZ MD Hx of Present Illness Admitted for her headaches and diagnosis -induced hypertension mother is 5 para 2 at 32-4/7 week with an estimated weight of the fetus about 4 pounds. Her blood type is A+ RPR nonreactive hepatitis B surface antigen negative HIV negative group B strep unknown I spoke extensively to the mother about problems related to treatment prematurity including a long-term neurodevelopmental problems risk, respiratory problems feeding difficulties and TPN, needing for venous and arterial access hyperbilirubinemia metabolic disturbance feeding intolerance necrotizing enterocolitis infection apnea hyperbilirubinemia intracranial hemorrhage and many other. She understood the information was receptive and asked pertinent questions all which were answered. section is planned related to -induced hypertension. The mother received betamethasone 1 dose and is due to receive his next dose today. Thank you for allowing me to assist in the care of this family. Social History Smoking Status: Never smoker Exam/Review of Systems Vital Signs Vitals Vital Signs Date Time Temp Pulse Resp B/P Pulse Ox O2 Delivery O2 Flow Rate FiO2 01/03/17 10:54 98.1 16 135/89 Intake and Output 01/03/17 01/03/17 01/04/17 15:00 23:00 07:00 Intake Total 1400 ml 1550 ml Output Total 1100 ml 2250 ml Balance 300 ml -700 ml Results Result Diagram: 01/04/17 1202 01/04/17 1202 Results 24 hrs Laboratory Tests Test 01/03/17 23:14 01/04/17 06:41 01/04/17 11:58 01/04/17 12:02 Magnesium Level 4.4 H 5.0 H 5.5 *H White Blood Count 12.2 #H 13.9 H Red Blood Count 3.92 L 4.03 L Hemoglobin 11.4 L 11.7 L Hematocrit 33.9 L 34.9 L Mean Corpuscular Volume 86.5 86.6 Mean Corpuscular Hemoglobin 29.1 29.0 Mean Corpuscular Hemoglobin Concent 33.6 33.5 Red Cell Distribution Width 14.8 H 14.9 H Platelet Count 245 258 Mean Platelet Volume 10.2 10.1 Neutrophils % 87.3 H 84.4 H Lymphocytes % 8.7 L 9.5 L Monocytes % 2.6 4.3 Eosinophils % 0.0 0.0 Basophils % 0.1 0.1 Nucleated Red Blood Cells % 0.0 0.0 Neutrophils # (Manual) 11 H 12 H Lymphocytes # 1.1 1.3 Monocytes # 0.3 0.6 Eosinophils # 0.0 0.0 Basophils # 0.0 0.0 Nucleated Red Blood Cells # 0.0 0.0 Prothrombin Time 12.4 Prothrombin Time Ratio 1.0 INR International Normalized Ratio 0.92 Activated Partial Thromboplast Time 26.4 Sodium Level 135 135 Potassium Level 3.9 3.8 Chloride Level 106 105 Carbon Dioxide Level 18 L 18 L Anion Gap 15 16 Blood Urea Nitrogen 9 9 Creatinine 0.47 0.51 Glucose Level 122 112 Uric Acid 6.0 Calcium Level 7.5 L 7.6 L Total Bilirubin 0.1 L 0.2 Direct Bilirubin 0.00 0.00 Indirect Bilirubin 0.1 0.2 Aspartate Amino Transf (AST/SGOT) 16 16 Alanine Aminotransferase (ALT/SGPT) 26 25 Alkaline Phosphatase 157 H 169 H Total Protein 6.5 7.0 Albumin 3.2 L 3.6 Globulin 3.30 H 3.40 H Albumin/Globulin Ratio 0.96 1.05 Medications Medications Current Medications Lactated Ringer's 1,000 ml @ 125 mls/hr Q8H IV Last administered on 01/04/17 02:35; Admin Dose 125 MLS/HR; Start 01/03/17 at 14:25 Magnesium Sulfate (Magnesium Sulfate 20 Gm/500 ml) 500 ml @ 50 mls/hr Q10H IV Last administered on 01/04/17 13:11; Admin Dose 50 MLS/HR; Start 01/03/17 at 14 :25 Betamethasone Acet/Betameth SodPhos (Celestone Soluspan) 12 mg Q24H IM Last administered on 01/04/17 13:27; Admin Dose 12 MG; Start 01/03/17 at 14:30; Stop 01/04/17 at 14:31 Prenat Multivit/ Ruma/Iron/Folic Ac () 1 tab DAILY PO Last administered on 01/04/17 09:04; Admin Dose 1 TAB; Start 01/04/17 at 09:00 Labetalol HCl (Labetalol) 20 mg PRN PRN IV ELEVATED BLOOD PRESSURE Last administered on 01/03/17 17:37; Admin Dose 20 MG; Start 01/03/17 at 17:30 Acetaminophen (Tylenol Tab) 650 mg Q6H PRN PO PAIN AND OR ELEVATED TEMP Last administered on 01/04/17 09:30; Admin Dose 650 MG; Start 01/03/17 at 17:30 Labetalol HCl (Normodyne) 200 mg BID PO Last administered on 01/04/17 09:04; Admin Dose 200 MG; Start 01/03/17 at 17:24 CHOLO TYSON Jan 04, 2017 14:03
[2017-01-04 16:21] LABS: SCRET 0.51 mg/dl (0.44-1.00)
[2017-01-04] MEDS ORDERED: HYDROCODONE/APAP (5/325) TAB PO PRN (22:00)
[2017-01-04] MEDS ORDERED: METHYLERGONOVINE 0.2 MG INJ IM PRN (22:00)
[2017-01-04] MEDS ORDERED: IBUPROFEN 600 MG TAB PO PRN (22:00)
[2017-01-04] MEDS ORDERED: OXYCODONE/ASPIRIN (4.88/325) TAB PO PRN (22:00)
[2017-01-04] MEDS ORDERED: MISOPROSTOL 200 MCG TAB PR PRN (22:00)
[2017-01-04] MEDS ORDERED: BUTORPHANOL 2 MG INJ IV PRN ×2 (22:00)
[2017-01-04] MEDS ORDERED: LIDOCAINE 1% (MPF) 30 ML INJ INJ PRN (22:00)
[2017-01-04] MEDS ORDERED: OXYTOCIN 30 UNITS/LR 500 ML IV SCH ×2 (22:00)
[2017-01-04] MEDS ORDERED: OXYTOCIN 30 UNITS/LR 500 ML IV PRN (22:00)
[2017-01-04] MEDS ORDERED: OXYCODONE/ACETAMINOPHEN (5/325) TAB PO PRN (22:00)
[2017-01-04] MEDS ORDERED: CARBOPROST 250 MCG INJ IM PRN (22:00)
[2017-01-04] MEDS ORDERED: CLINDAMYCIN 900 MG/D5W (PMX) 50 ML IVPB ONE (22:38)
[2017-01-04] MEDS: CLINDAMYCIN 900 MG/D5W (PMX) 50 ML IVPB SCH (22:51)
[2017-01-05] MEDS: OXYTOCIN 30 UNITS/LR 500 ML IV SCH ×2 (00:38→16:04)
--- NOTE | 2017-01-05 02:16 | QN ---
Documentation Comment Pt's chart was reviewed and I agree that this pt should be delivered as she has severe PIH and is on BP medications, Magnesium sulfate, and received 2 doses of steroids. Although I could not find a note by perinatology I was told that the perinatologist had said to deliver her and was supposed to put a note on the chart saying the same. Pt had a SALAZAR earlier in the day 01/04 however when I went to see her in the evening she did not appear in distress and her SALAZAR, per the pt , appeared to be hunger related as she had not eaten all day and the epigastric pain was gas related. I was told she was to be delivered by although she has had 2 vaginal deliveries before. I checked her cervix and found her to be induceable with an exam of 70%/1cm/-3/soft/mid. I offered induction to her instead and the pt readily accepted. Once on L and D after a 1/2 a sandwich and some Sprite the pt was feeling much better and in good spirits. Pitocin was initiated. SINAI MARTE MD Jan 05, 2017 02:16
--- NOTE | 2017-01-05 02:50 | CONS ---
DATE OF ADMISSION: 01/03/2017 DATE OF CONSULTATION: 01/05/2017 HISTORY OF PRESENT ILLNESS: I received a call from Dr. Hemphill around noon on January 04 about the patient who was admitted yesterday afternoon with elevated blood pressures and headaches. I reviewed her vital signs and FHT was monitored from my computer and it showed that upon admission her blood pressures were in severe range blood pressures. At the time, that I spoke to Dr. Hemphill, her blood pressures were in the moderate range. Per Dr. Hemphill, patient had headaches. She had been placed on magnesium sulfate and had been given 1 dose of betamethasone. She apparent does not have a history of hypertension. My immediate recommendation was if the patient does have neurologic symptoms, meaning headache, patient needs to be delivered as soon as possible. However, the 2nd dose of betamethasone should be given and then delivery if necessary. However, if the headache is not present, then the patient can be given the betamethasone and then 24 hours after the 2nd dose of betamethasone, deliver, if her blood pressures are again in the severe range. If her blood pressures remain in the normal-to- moderate range, heart tone is reassuring and patient does not have any evidence of severe preeclampsia, essentially GI or neurologic symptoms or thrombocytopenia, meaning platelet of less than 100,000 or nonreassuring heart tone, then she can be expectantly managed. If you decide not to deliver the patient, in case her headache resolves, please note that the magnesium sulfate should be continued 24 hours after the 2nd of dose of betamethasone. After that, it should be stopped. If her blood pressures again start to rise to severe range or she experiences neurological or GI symptom, delivery is recommended. SUMMARY: If headache persists, delivery is recommended as soon as possibly after the 2nd dose of betamethasone. If headache has resolved, then a 2nd dose of betamethasone should be given, magnesium should be continued for 24 hours after the 2nd dose and then discontinued and delivery is recommended at any point, if there is any evidence of neurologic, GI or thrombocytopenia or nonreassuring heart tone. Dictated By: Rita Gary MD /yaniv/araceli /Document#: [id number] SAMMI
[2017-01-05] MEDS: CLINDAMYCIN 900 MG/D5W (PMX) 50 ML IVPB SCH ×3 (05:22→17:57)
[2017-01-05] MEDS: LACTATED RINGER'S 1,000 ML IV SCH ×4 (05:23→18:26)
[2017-01-05] MEDS: LABETALOL 100 MG TAB PO SCH ×2 (08:55→21:40)
[2017-01-05] MEDS: PRENATAL VITAMIN PO SCH (08:56)
[2017-01-05] MEDS: MAGNESIUM SULFATE 20 GM/500 ML 500 ML IV SCH ×2 (09:35→19:43)
--- NOTE | 2017-01-05 14:15 | QN ---
Documentation Comment This 31 years old EDC of 02/26/1930 weeks and 4/7 day to day currently being induced recommended delivery by the perinatology ,denies headache blurry vision epigastric pain she is being induced by Pitocin IV infusion decided by Dr. Garcia as of midnight, her cervical dilatation prior to induction was 1 cm 50% now she is 2cm 70% vertex at -2 to 3 station her blood pressure is running 140s over 80s she is on magnesium sulfate, possibility of section in case of lack of progress or indication discussed with her all her questions answered ,will continue induction. Hoping for normal vaginal delivery. WILLEM SANZ MD Jan 05, 2017 14:11
[2017-01-06] MEDS: MAGNESIUM SULFATE 20 GM/500 ML 500 ML IV SCH ×2 (05:55→15:27)
[2017-01-06 07:14] LABS: BASOPHILS % 0.2 % (0.0-2.0); EOSINOPHILS % 0.1 % (0.0-7.0); HEMATOCRIT 32.1 % (37.0-47.0); HEMOGLOBIN 10.7 g/dl (12.0-16.0); LYMPHOCYTES # 1.8 10^3/ul (0.8-2.9); LYMPHOCYTES % 16.7 % (15.0-51.0); MEAN CORPUSCULAR HEMOGLOBIN 29.3 pg (29.0-33.0); MEAN CORPUSCULAR HGB CONC 33.3 g/dl (32.0-37.0); MEAN CORPUSCULAR VOLUME 87.9 fl (82.0-101.0); MONOCYTE # 0.8 10^3/ul (0.3-0.9); MONOCYTES % 7.2 % (0.0-11.0); NEUTROPHILS % 72.2 % (39.0-77.0); PLATELET COUNT 239 10^3/UL (140-415); RED BLOOD COUNT 3.65 10^6/ul (4.20-5.40); RED CELL DISTRIBUTION WIDTH 15.5 % (11.5-14.5); WHITE BLOOD COUNT 10.6 10^3/ul (4.8-10.8)
[2017-01-06 07:30] LABS: BILIRUBIN,INDIRECT 0.1 mg/dl (0-1.1); BILIRUBIN,TOTAL 0.1 mg/dl (0.2-1.3); CALCIUM 6.8 mg/dl (8.4-10.2); CREATININE 0.53 mg/dl (0.44-1.00); POTASSIUM 4.1 mmol/L (3.5-5.1); URIC ACID 6.4 mg/dl (3.1-7.9)
[2017-01-06] MEDS: LACTATED RINGER'S 1,000 ML IV SCH ×2 (07:49→17:46)
[2017-01-06 08:30] LABS: ADD UMIC YES; UR ASCORBIC ACID NEGATIVE (NEGATIVE); UR BILIRUBIN (Dip) NEGATIVE (NEGATIVE); UR BLOOD (Dip) 1+ mg/dL (NEGATIVE); UR CLARITY CLEAR (CLEAR); UR COLOR STRAW (YELLOW); UR GLUCOSE (Dip) NEGATIVE (NEGATIVE); UR KETONES (Dip) NEGATIVE (NEGATIVE); UR LEUKOCYTE ESTERASE (Dip) TRACE Leu/ul (NEGATIVE); UR NITRITE (Dip) NEGATIVE (NEGATIVE); UR RBC 1 /HPF (0-5); UR SPECIFIC GRAVITY (Dip) 1.006 (1.003-1.030); UR SQUAMOUS EPITHELIAL CELL FEW /HPF (FEW); UR TOTAL PROTEIN (Dip) NEGATIVE (NEGATIVE); UR UROBILINOGEN (Dip) NEGATIVE (NEGATIVE)
[2017-01-06] MEDS: LABETALOL 100 MG TAB PO SCH (09:06)
[2017-01-06] MEDS ORDERED: OXYTOCIN 30 UNITS/LR 500 ML IV SCH (09:30)
[2017-01-06] MEDS: PRENATAL VITAMIN PO SCH (09:33)
[2017-01-06] MEDS: ACETAMINOPHEN 325 MG TAB PO PRN ×2 (10:45→20:59)
[2017-01-06] MEDS: CEFAZOLIN 2 GM/50 ML (PMX) 50 ML IVPB SCH ×2 (10:48→18:39)
[2017-01-06] MEDS ORDERED: LABETALOL HCL 20MG INJ IV STA (14:17)
[2017-01-06] MEDS ORDERED: LABETALOL HCL 20MG INJ IV ONE (15:30)
[2017-01-06] MEDS ORDERED: LABETALOL HCL 20MG INJ IV SCH (18:33)
[2017-01-06] MEDS: LABETALOL 200 MG TAB PO SCH (20:57)
[2017-01-06] MEDS: LABETALOL HCL 20MG INJ IV PRN (20:59)
[2017-01-06] MEDS ORDERED: OXYTOCIN 30 UNITS/LR 500 ML IV PRN (21:30)
[2017-01-06] MEDS ORDERED: MISOPROSTOL 200 MCG TAB PR PRN (21:30)
[2017-01-06] MEDS ORDERED: CARBOPROST 250 MCG INJ IM PRN (21:30)
[2017-01-06] MEDS ORDERED: METHYLERGONOVINE 0.2 MG INJ IM PRN (21:30)
[2017-01-06] MEDS ORDERED: FENTAnyl 50 MCG/ML VIAL ONE (21:42)
[2017-01-06] MEDS ORDERED: PHENYLephrine (100 MCG/ML) 5ML SYG ONE (21:42)
[2017-01-06] MEDS ORDERED: METOCLOPRAMIDE 10 MG INJ ONE (21:42)
[2017-01-06] MEDS ORDERED: OXYTOCIN 10 UNIT INJ ONE (21:42)
[2017-01-06] MEDS ORDERED: morphine SULFATE/PF (10 MG/10 ML) INJ ONE (21:42)
[2017-01-06] MEDS ORDERED: ALBUTEROL 0.083% (NEB) 2.5 MG/3 ML AMP HHN PRN (22:30)
[2017-01-06] MEDS ORDERED: MEPERIDINE 25 MG INJ IV PRN (22:30)
[2017-01-06] MEDS ORDERED: EPHEDrine SULFATE 50 MG/5 ML SYG IV PRN (22:30)
[2017-01-06] MEDS ORDERED: morphine 4 MG/ML VIAL IV PRN (22:30)
[2017-01-06] MEDS ORDERED: NALOXONE (0.4 MG/ML) INJ IV PRN (22:30)
[2017-01-06] MEDS ORDERED: IPRATROPIUM (NEB) 0.5 MG/2.5 ML AMP HHN PRN (22:30)
[2017-01-06] MEDS ORDERED: ONDANSETRON 4 MG INJ IV PRN ×2 (22:30)
[2017-01-06] MEDS ORDERED: TRIMETHOBENZAMIDE 100 MG/ML VIAL IM PRN (22:30)
[2017-01-06] MEDS ORDERED: DIPHENHYDRAMINE 50 MG INJ IV PRN ×2 (22:30)
[2017-01-06] MEDS ORDERED: OXYCODONE/ACETAMINOPHEN (5/325) TAB PO PRN ×2 (22:30)
[2017-01-06] MEDS ORDERED: HYDROmorphONE (0.2 MG/ML) 10ML SYG IV PRN ×3 (22:30)
[2017-01-06] MEDS ORDERED: LABETALOL HCL 20MG INJ IV PRN (22:30)
[2017-01-06] MEDS ORDERED: morphine 2 MG INJ IV PRN (22:30)
[2017-01-06] MEDS ORDERED: FENTAnyl 50 MCG/ML VIAL IV PRN ×3 (22:30)
--- NOTE | 2017-01-06 23:09 | SIPON ---
Date/Time of Note Date/Time of Note DATE: 01/06/17 TIME: 23:05 Operative Report Preoperative Diagnosis 32 weeks and 6 days , preeclampsia with severe features remote from delivery , voluntary sterilization Postoperative Diagnosis Same Surgeon: PATRICE GAMINO MD respiratory equipment assistant: BETTYE YAO Anesthesia Type: spinal Estimated Blood Loss: other (500 ml) Transfusion Required: no Specimens Placenta and portions of right and left Fallopian tubes Grafts/Implants: none Complications: no PATRICE GAMINO MD Jan 06, 2017 23:09
--- NOTE | 2017-01-06 23:36 | PREOPHP ---
DATE OF ADMISSION: 01/03/2017 HISTORY OF PRESENT ILLNESS: A 31-year-old female, 5, para 2-0-2-2, estimated date of delivery of 02/25/2017 at 32 weeks gestation, was admitted due to elevated blood pressure. PAST MEDICAL HISTORY: Unremarkable. PAST SURGICAL HISTORY: Unremarkable. ALLERGIES: PENICILLIN. FAMILY HISTORY: Noncontributory. PHYSICAL EXAMINATION: VITAL SIGNS: Patient is afebrile. Blood pressure 130s to 170s systolic and 80s and 90s diastolic. HEAD, NECK, AND CHEST: Within normal limits. ABDOMEN: Soft, nontender, and gravid. EXTREMITIES: Reveal bilateral edema. NEUROLOGIC: Normal. HOSPITAL COURSE: The patient was admitted with preeclampsia with severe range blood pressures. The patient was given a course of betamethasone for lung maturity. The patient was started on intravenous magnesium sulfate for seizure prophylaxis due to patient's symptoms of headache. Recommendation of perinatologist was to deliver the patient after completing a course of betamethasone due to the patient's neurologic symptoms of headache. The patient has been given oxytocin for induction of labor. The patient has progressed to 2 cm dilation. During the course of induction the patient has been on intravenous magnesium sulfate. The patient has been given repeated doses of intravenous labetalol to control her blood pressure. However, the patient continues to complain of headache and blood pressures keep remaining in severe range. The patient is for delivery by primary section due to preeclampsia with severe features remote from delivery. The patient also desires sterilization by bilateral tubal ligation. The patient was counseled about the risks, benefits, and alternatives of the procedures. The patient has been counseled about all of her contraceptive options including all methods of sterilization. It was explained to the patient that with bilateral tubal ligation there is a chance of failure resulting in ectopic and intrauterine . After counseling the patient said she understood and gave informed consent for the procedures. Dictated By: Deion Edwards MD /yaniv/darian /Document#: [id number]
[2017-01-07] VITALS (18 sets, daily range): BP systolic 118–150; BP diastolic 61–92; PULSE 72–91; RESP 16–22
[2017-01-07] MEDS: hydrALAzine 20 MG INJ IV PRN ×2 (01:32→02:10)
[2017-01-07] MEDS: KETOROLAC 30 MG INJ IV PRN ×2 (01:33→17:26)
[2017-01-07] MEDS: MAGNESIUM SULFATE 20 GM/500 ML 500 ML IV SCH ×2 (01:38→11:13)
[2017-01-07] MEDS ORDERED: MISOPROSTOL 200 MCG TAB PR PRN (03:00)
[2017-01-07] MEDS ORDERED: OXYTOCIN 30 UNITS/LR 500 ML IV PRN (03:00)
[2017-01-07] MEDS ORDERED: CARBOPROST 250 MCG INJ IM PRN (03:00)
[2017-01-07] MEDS ORDERED: LANOLIN 7 GM TUBE TOP PRN (03:00)
[2017-01-07] MEDS: OXYTOCIN 30 UNITS/LR 500 ML IV SCH ×2 (04:01→10:41)
[2017-01-07] MEDS: LABETALOL 200 MG TAB PO SCH ×3 (09:29→21:04)
[2017-01-07] MEDS: LACTATED RINGER'S 1,000 ML IV SCH ×4 (10:56→18:56)
--- NOTE | 2017-01-07 11:30 | QN ---
Documentation Comment No complaint Afebrile VSS Abdomen soft ND POD #1 Stable Continue IV magnesium sulfate PATRICE GAMINO MD Jan 07, 2017 11:30
[2017-01-07 11:47] LABS: BASOPHILS % 0.2 % (0.0-2.0); EOSINOPHILS # 0.1 10^3/ul (0.0-0.5); EOSINOPHILS % 0.4 % (0.0-7.0); HEMATOCRIT 36.6 % (37.0-47.0); HEMOGLOBIN 11.6 g/dl (12.0-16.0); LYMPHOCYTES # 1.8 10^3/ul (0.8-2.9); LYMPHOCYTES % 13.2 % (15.0-51.0); MEAN CORPUSCULAR HEMOGLOBIN 28.1 pg (29.0-33.0); MEAN CORPUSCULAR HGB CONC 31.7 g/dl (32.0-37.0); MEAN CORPUSCULAR VOLUME 88.6 fl (82.0-101.0); MEAN PLATELET VOLUME 9.8 fl (7.4-10.4); MONOCYTE # 0.7 10^3/ul (0.3-0.9); MONOCYTES % 4.9 % (0.0-11.0); NEUTROPHILS % 79.9 % (39.0-77.0); NUCLEATED RED BLOOD CELLS% 0.1 /100WBC (0.0-0.0); PLATELET COUNT 241 10^3/UL (140-415); RED BLOOD COUNT 4.13 10^6/ul (4.20-5.40); RED CELL DISTRIBUTION WIDTH 15.7 % (11.5-14.5); WHITE BLOOD COUNT 13.5 10^3/ul (4.8-10.8)
[2017-01-07] MEDS: SENNA/DOCUSATE NA (8.6MG/50MG) TAB PO SCH (21:04)
[2017-01-08] VITALS (7 sets, daily range): BP systolic 117–156; BP diastolic 67–92; PULSE 76–102; RESP 18–20
[2017-01-08] MEDS: OXYCODONE/ACETAMINOPHEN (5/325) TAB PO PRN ×4 (00:44→23:05)
--- NOTE | 2017-01-08 04:34 | OPR ---
DATE OF OPERATION: 01/06/2017 PREOPERATIVE DIAGNOSIS: at 32 weeks and 6 days with preeclampsia with severe features remote from delivery and voluntary sterilization. POSTOPERATIVE DIAGNOSIS: at 32 weeks and 6 days with preeclampsia with severe features remote from delivery and voluntary sterilization. OPERATION: 1. Primary low-transverse . 2. Bilateral tubal ligation. SURGEON: Deion Edawrds MD. W[employer] SUPPORT SPECIALIST: Jesus Alberto Cramer MD. ANESTHESIA: Spinal. PROCEDURE: The patient was taken to the operating room and placed on the operating table. After successful spinal anesthesia was given, the patient was placed in supine position. The area was prepped and draped in the usual sterile fashion. Spinal anesthesia was assessed and was satisfactory. Using scalpel, Pfannenstiel incision was made 2 fingerbreadths above the symphysis pubis. The incision was carried to the fascia. The fascia was incised and extended bilaterally with Beckham scissors. Two Benitez's were used to separate the fascia from the muscle. The muscle was dissected down to peritoneum. The peritoneum was secured with 2 Chelsi's and incised with Metzembaum scissors. Using a scalpel, a small transverse incision was made on the lower segment of the uterus. Upon entering the uterine cavity, Pfannenstiel incision was used to extend the incision bilaterally curved up. The baby was delivered from cephalic presentation. After suctioned and clear of amniotic fluid, the baby was handed off to the team in attendance. Apgars were 8 and 9. The placenta was delivered without difficulty. The uterus was closed with number 1 Monocryl continuous locked after assuring hemostasis. Both ovaries and tubes all looked normal. The right fallopian tube was grasped with a Moody clamp. Using 0 plain suture ligature, a 5-cm segment of the right fallopian tube was doubly ligated. Using Metzenbaum scissors, a portion of the right fallopian tube above the ligated area was excised and sent to pathology. The same procedure was repeated on the left fallopian tube. After assuring hemostasis, the patient was closed with 2-0 Vicryl continuous. The fascia was closed with #1 Vicryl continuous in 2 segments. The subcutaneous tissue was reapproximated with 2-0 plain, and the skin was closed keyur. ESTIMATED BLOOD LOSS: Five hundred mL. COUNTS: All counts were correct. Dictated By: Deion Edwards MD /fnt/grs /Document#: [id number]
[2017-01-08] MEDS: SENNA/DOCUSATE NA (8.6MG/50MG) TAB PO SCH ×2 (08:57→20:48)
[2017-01-08] MEDS: LABETALOL 200 MG TAB PO SCH ×3 (08:57→20:48)
--- NOTE | 2017-01-08 20:44 | QN ---
Documentation Comment No complaint Afebrile VSS Abdomen soft Stable Continue present care. PATRICE GAMINO MD Jan 08, 2017 20:44
[2017-01-09] VITALS (8 sets, daily range): BP systolic 129–161; BP diastolic 74–95; PULSE 69–87; RESP 17–20
[2017-01-09] MEDS ORDERED: DIPHTH/TET/ACEL PERTUSS (ADULT) 0.5 ML VIAL IM* ONE (09:00)
[2017-01-09] MEDS: SENNA/DOCUSATE NA (8.6MG/50MG) TAB PO SCH ×2 (09:13→21:10)
[2017-01-09] MEDS: LABETALOL 200 MG TAB PO SCH ×3 (09:13→21:10)
[2017-01-09] MEDS: OXYCODONE/ACETAMINOPHEN (5/325) TAB PO PRN ×2 (09:14→23:50)
--- NOTE | 2017-01-09 09:29 | QN ---
Documentation Comment No complaint Afebrile VSS Abdomen soft Stable Continue present care. PATRICE GAMINO MD Jan 09, 2017 09:29
[2017-01-10] MEDS: NIFEdipine (XL) 30 MG TAB PO SCH ×2 (01:00→11:53)
[2017-01-10 03:45] VITALS: BP 151/78; PULSE 69; RESP 19
[2017-01-10 08:00] VITALS: BP 168/86; PULSE 60; RESP 18
[2017-01-10] MEDS: SENNA/DOCUSATE NA (8.6MG/50MG) TAB PO SCH ×2 (08:24→19:40)
[2017-01-10] MEDS: LABETALOL 200 MG TAB PO SCH ×3 (08:24→20:17)
[2017-01-10 09:35] VITALS: BP 144/79; PULSE 84; RESP 17
[2017-01-10 16:00] VITALS: BP 136/85; PULSE 96; RESP 17
[2017-01-10] MEDS: ACETAMINOPHEN 325 MG TAB PO PRN (19:40)
[2017-01-10 19:45] VITALS: BP 153/94; PULSE 91; RESP 19
--- NOTE | 2017-01-10 22:02 | QN ---
Documentation Comment BP still elevated Will add PATRICE Zuniga MD Jan 10, 2017 22:02
[2017-01-11 00:01] VITALS: BP 151/94; PULSE 81; RESP 19
[2017-01-11 04:00] VITALS: BP 139/81; PULSE 86; RESP 19
[2017-01-11] MEDS: OXYCODONE/ACETAMINOPHEN (5/325) TAB PO PRN (06:47)
[2017-01-11 08:30] VITALS: BP 137/88; PULSE 83
[2017-01-11] MEDS: SENNA/DOCUSATE NA (8.6MG/50MG) TAB PO SCH (09:14)
[2017-01-11] MEDS: LABETALOL 200 MG TAB PO SCH ×2 (09:14→13:10)
[2017-01-11] MEDS: NIFEdipine (XL) 30 MG TAB PO SCH (11:46)
[2017-01-11 12:00] VITALS: BP 134/81; PULSE 81; RESP 16
[2017-01-11 13:10] VITALS: BP 139/87; PULSE 88
--- NOTE | 2017-01-14 23:55 | DS ---
DATE OF ADMISSION: 01/03/2017 DATE OF DISCHARGE: 01/11/2017 ADMITTING DIAGNOSIS: at 32 weeks with preeclampsia. HISTORY OF PRESENT ILLNESS: The patient is a 31-year-old female 5, para 2, 0-2-2 at the time of admission, para 2, 1-2-3 at the time of discharge at 32 weeks gestation who was admitted due to elevated blood pressure. The patient had workup for preeclampsia. Perinatology consultation was obtained. The patient was noted to have blood pressures in the severe range and also headache. Recommendation of perinatologist was to deliver the patient. The patient was given induction of labor. Due to persistent elevated blood pressure and lack of progress in labor on 01/06/2017 the patient underwent a primary low-transverse section. The patient also had bilateral tubal ligation. The patient's operation was uncomplicated. Postoperatively the patient was continued on intravenous magnesium sulfate for another 24 hours. The patient was noted to have an elevated blood pressure. The patient was given antihypertensive medication. The patient is the patient's blood pressure was well controlled. The patient was discharged on postoperative day number 5 after having had adequate bladder and bowel function. DISCHARGE CONDITION: Stable. DISCHARGE INSTRUCTIONS: Diet regular. Activities pelvic rest. No strenuous activities. DISCHARGE MEDICATIONS: 1. Tylenol as needed for pain. 2. Procardia XL 30 mg twice a day. FOLLOWUP: Follow up in the office in 2 days. FINAL DIAGNOSES: 1. delivered by section. 2. Preeclampsia with severe features. 3. Voluntary sterilization. 4. Mother with single live born. Dictated By: Deion Edwards MD /yaniv/giovanni /Document#: [id number]
== END 2017-01-11 18:48 | disposition home or self-care (01) | DRG 765 ==
LOC: OBT 10:51 → L-D 10:52 → OBT 14:17 → OBG 14:17 → L-D 01-04 21:41 → PP1 01-07 03:30
PROVIDERS: ADMIT Obstetrics & Gynecology; ATTEND Obstetrics & Gynecology
PROC: 0UL70ZZ Occlusion of Bilateral Fallopian Tubes, Open Approach (ICD-10-PCS; 2017-01-06)
PROC: 3E033VJ Introduction of Other Hormone into Peripheral Vein, Percutaneous Approach (ICD-10-PCS; 2017-01-06)
PROC: 10D00Z1 Extraction of Products of Conception, Low, Open Approach (ICD-10-PCS; principal; 2017-01-06 21:30)
DX: O60.14X0 Preterm labor third trimester with preterm delivery third trimester, not applicable or unspecified (principal); Z68.41 Body mass index [BMI] 40.0-44.9, adult; O14.14 Severe pre-eclampsia complicating childbirth; O99.214 Obesity complicating childbirth; E66.01 Morbid (severe) obesity due to excess calories; Z30.2 Encounter for sterilization; Z3A.32 32 weeks gestation of pregnancy; Z37.0 Single live birth
CPT/HCPCS: 36415; 76815; 76818; 80053; 81001; 82575; 83735; 84156; 84560; 85025; 85384; 85610; 85730; 86592; 86850; 86900; 86901; 88302; 88307; 90715; 94760; 99464; G0463; J0360; J0690; J0702; J1200; J1885; J2274; J2370; J2590; J2765; J3010; J3475; J7120

== ENCOUNTER 2017-02-02 15:29 | Emergency (ER) | payer MEDICAID ==
[~2017-02-02] VITALS: Ht 167.6 cm; Wt 96.0 kg
[2017-02-02 15:36] VITALS: Ht 167.6 cm; Wt 96.0 kg
[2017-02-02] MEDS ORDERED: ACET500C5 PO (16:10)
--- NOTE | 2017-02-02 16:18 | ERD ---
ER Documentation Chief Complaint Date/Time DATE: 02/02/17 TIME: 16:14 Chief Complaint ear pain & sorethroat x4 days HPI 31-year-old female patient with no significant past medical history presents to the ED complaining of sore throat radiating to her left ear as well as a dry cough that started intermittently for 4 days. Reports that her daughters are also sick with similar symptoms. Denies any wheezing, shortness of breath, chest pain, abdominal pain, nausea, vomiting, diarrhea, rashes, neck stiffness, change in phonation. Patient reports that she is breast feeding. ROS All systems reviewed and are negative except as per history of present illness. Medications Home Meds Active Scripts Acetaminophen* (Tylophen*) 500 Mg Capsule, 1 CAP PO Q6H Y for PAIN AND OR ELEVATED TEMP, #20 CAP Prov:LENA PENN PA-C 02/02/17 Reported Medications Vits W-Ca,Fe,Fa(<1MG) () 1 Tab Tablet, 1 TAB PO 11/08/11 Allergies Allergies: Coded Allergies: Penicillins (Verified Allergy, Unknown, 02/02/17) PMhx/Soc History of Surgery: No Anesthesia Reaction: No Hx Neurological Disorder: No Hx Respiratory Disorders: No Hx Cardiac Disorders: No Hx Psychiatric Problems: No Hx Miscellaneous Medical Probl: No (NO OTHER MEDICAL PROBLEMS) Hx Alcohol Use: No Hx Substance Use: No Hx Tobacco Use: No Smoking Status: Never smoker Physical Exam Vitals Vital Signs Date Time Temp Pulse Resp B/P Pulse Ox O2 Delivery O2 Flow Rate FiO2 02/02/17 15:36 99.0 98 18 121/78 99 Physical Exam Const: [id number], well-nourished. In no acute distress. Head: Atraumatic, normocephalic Eyes: Normal Conjunctiva without injection. No purulent discharge. PERRL. EOMI ENT: Normal external ear. Ear canal without erythema. Tympanic membrane pearly fischer without effusion or bulging. No tenderness to palpation of the bilateral tragus or mastoid. Nasal canal clear with normal turbinates. Moist oropharynx without tonsillar exudates. Non-erythematous pharynx. Uvula midline. No drooling. No trismus. Neck: Full range of motion. No meningismus. No cervical lymphadenopathy. Resp: Clear to auscultation bilaterally. No wheezing, rhonchi, rales, or crackles. No accessory muscle use. No retractions. Cardio: Regular rate and rhythm. No murmurs, rubs or gallops. Abd: Soft, non tender, non distended. Normal bowel sounds. No palpable masses. No rebound tenderness. No guarding. Skin: No petechiae or rashes Back: No midline tenderness. No CVA tenderness. Ext: No cyanosis, or edema. Neur: Awake and alert. Psych: Normal Mood and Affect Procedures/MDM 31-year-old female patient with no significant past medical history presents to the ED complaining of dry cough, sore throat that started intermittently for 4 days. Patient is afebrile and nontoxic-appearing. Patient has normal vital signs. This patient presents to the ED with symptoms consistent with a viral acute upper respiratory infection. Patient is afebrile and has normal vital signs. Patient's physical exam include lungs which were clear to auscultation and a normal pulse oximetry. There is a low suspicion for pneumonia, pneumothorax, mononucleosis, pulmonary embolism, epiglottitis, otitis media, otitis externa, viral/strep pharyngitis, sinusitis, peritonsillar abscess, mastoiditis, retropharyngeal abscess, meningitis, sepsis, acute abdomen or other emergent conditions. Fluids, rest, and symptomatic treatment are recommended for the management of patient's symptoms. Discharge medications: Tylenol Patient was instructed to return to the ED for any new or worsening symptoms. They should otherwise follow up with the primary care provider within 1-2 days. The patient's questions were answered at the time of discharge. Patient understood and agreed with discharge management. Departure Diagnosis: Primary Impression: Sore throat Additional Impression: Cough Condition: Stable Patient Instructions: Uri, Viral, No Abx (Child) Referrals: COMMUNITY CLINICS YOU HAVE RECEIVED A MEDICAL SCREENING EXAM AND THE RESULTS INDICATE THAT YOU DO NOT HAVE A CONDITION THAT REQUIRES URGENT TREATMENT IN THE EMERGENCY DEPARTMENT. FURTHER EVALUATION AND TREATMENT OF YOUR CONDITION CAN WAIT UNTIL YOU ARE SEEN IN YOUR DOCTORS OFFICE WITHIN THE NEXT 1-2 DAYS. IT IS YOUR RESPONSIBILITY TO MAKE AN APPOINTMENT FOR FOLOW-UP CARE. IF YOU HAVE A PRIMARY DOCTOR --you should call your primary doctor and schedule an appointment IF YOU DO NOT HAVE A PRIMARY DOCTOR YOU CAN CALL OUR PHYSICIAN REFERRAL HOTLINE AT IF YOU CAN NOT AFFORD TO SEE A PHYSICIAN YOU CAN CHOSE FROM THE FOLLOWING [facility] [address] [place] [facility] [address] [place] [facility] [address] [facility] [address] [facility] [address] [facility] [facility]. [address] [facility]. [facility] YOU HAVE RECEIVED A MEDICAL SCREENING EXAM AND THE RESULTS INDICATE THAT YOU DO NOT HAVE A CONDITION THAT REQUIRES URGENT TREATMENT IN THE EMERGENCY DEPARTMENT. FURTHER EVALUATION AND TREATMENT OF YOUR CONDITION CAN WAIT UNTIL YOU ARE SEEN IN YOUR DOCTORS OFFICE WITHIN THE NEXT 1-2 DAYS. IT IS YOUR RESPONSIBILITY TO MAKE AN APPOINTMENT FOR FOLOW-UP CARE. IF YOU HAVE A PRIMARY DOCTOR --you should call your primary doctor and schedule and appointment IF YOU DO NOT HAVE A PRIMARY DOCTOR YOU CAN CALL OUR PHYSICIAN REFERRAL HOTLINE AT . IF YOU CAN NOT AFFORD TO SEE A PHYSICIAN YOU CAN CHOSE FROM THE FOLLOWING [facility]: [facility] [address] [place] [address] [facility] [address] [place] [address] [facility] [address] [place] [address] [facility]ENT [facility]SPECIALTIES Additional Instructions: Call your primary care doctor TOMORROW for an appointment during the next 2-3 days.See the doctor sooner or return here if your condition worsens before your appointment time. LENA PENN PA-C Feb 02, 2017 16:18
== END 2017-02-02 16:30 | disposition home or self-care (01) ==
LOC: FTE 15:29
DX: J02.9 Acute pharyngitis, unspecified (principal)
CPT/HCPCS: 99283

== ENCOUNTER 2018-03-20 10:27 | Emergency (ER) | END 2018-03-20 11:40 | disposition home or self-care (01) ==

== ENCOUNTER 2018-05-09 21:12 | Emergency (ER) | END 2018-05-09 23:38 | disposition home or self-care (01) ==